=== PATIENT | male | born 1945 | race Caucasian/White ===

== ENCOUNTER → 2025-01-03 | Outpatient (CLI) | payer OTHER, SELFPAY ==
--- NOTE | 2025-01-03 | XR_ITS ---
Examination: Foot, right, 3 views Technique: AP, oblique, lateral views foot, 3 views Date and time of exam: January 03, 2025 1123 hours INDICATIONS: Nonhealing wound third digit noticed beginning 2 months ago. FINDINGS: Severe osteopenia. Advanced osteoarthritis first tarsometatarsal joint. No carmen cortical bone destruction No fracture IMPRESSION: No carmen cortical bone destruction
== END | disposition home or self-care (01) ==
PROVIDERS: PCP Family Medicine; Referring Provider Family Medicine; Visit Provider Family Medicine
DX: M79.671 Pain in right foot (principal); I70.235 Atherosclerosis of native arteries of right leg with ulceration of other part of foot
CPT/HCPCS: 73630